=== PATIENT | female | born 1965 | race Caucasian/White ===

== ENCOUNTER 2017-03-18 17:38 | Emergency (ER) | payer MEDICAID ==
[~2017-03-18] VITALS: Ht 162.6 cm; Wt 46.6 kg
[~2017-03-18 17:38] MED LIST: HYDR-3533 PO; ZOFR4TAB3 SL
[2017-03-18 17:42] VITALS: BP 108/71; PULSE 69; RESP 16; TEMP 98.2; O2SAT 98
--- NOTE | 2017-03-18 18:13 | PD ---
HPI Chief Complaint: ENT Complaint Time Seen by Provider: 18:08 Travel History International Travel<30 days: No Contact w/Intl Traveler<30days: No Traveled to known affect area: No History of Present Illness HPI 51-year-old female presents to the emergency room for evaluation of sore throat for the past 3 weeks. At onset of symptoms, she went to an urgent care and was prescribed azithromycin despite testing negative for strep. She finished her prescription and states her symptoms seem to be improving slightly. Symptoms worsened again yesterday. She describes it as sharp, stabbing pain on the right throat with radiation into lower jaw. Pain is worsened with speaking and singing. States she feels like she is losing her voice. She denies fever, chills, nausea, vomiting, cough, and congestion. Denies smoking. Denies difficulty eating, drinking, or swallowing. PFSH Past Medical History Diminished Hearing: No Gastrointestinal Disorders: Yes (crohns disease) Medical other: Yes (ULCAERATIVE COLITIS) Immunizations Current: Yes ?: Not Menopausal: Yes Past Surgical History Tonsillectomy: Yes Social History Alcohol Use: No Tobacco Use: No Substance Use: No Allergies-Medications (Allergen,Severity, Reaction): Coded Allergies: Penicillin (Verified Allergy, Severe, 03/18/17) Reported Meds & Prescriptions Reported Meds & Active Scripts Active Magic Mouthwash Pediatric/Adult Liq (Lidocaine/Diphenhydr/Alum/Mg/Simeth) 60 Ml Susp 5 Ml SWISH-SWAL ACHS Each 5mL contains: Diphenydramine 4.5mg, Viscous Lidocaine 2% 10mg, Maalox Advanced Regular Strength 2.7ml Review of Systems Except as stated in HPI: all other systems reviewed are Neg Physical Exam Narrative GENERAL: Well-nourished, well-developed female in no acute distress. Afebrile. Ambulatory. SKIN: Focused skin assessment warm/dry. HEAD: Normocephalic. EYES: No scleral icterus. No injection or drainage. NECK: Supple, trachea midline. No JVD or lymphadenopathy. ENT: Mucosa pink and moist. Mild erythema without exudates. No uvular edema. No uvular, palatal, or tonsillar deviation. Airway patent. Tonsils 1+ and equal bilaterally. Nasal turbinates appear normal without nasal blood, purulent drainage or septal hematoma. EARS: Bilateral pinnae and external canals appear within normal limits. Bilateral tympanic membranes without erythema, dullness or perforation. CARDIOVASCULAR: Regular rate and rhythm without murmurs, gallops, or rubs. RESPIRATORY: Breath sounds equal bilaterally. No accessory muscle use. Data Data Last Documented VS Vital Signs Date Time Temp Pulse Resp B/P Pulse Ox O2 Delivery O2 Flow Rate FiO2 03/18/17 17:42 98.2 69 16 108/71 98 MDM Medical Decision Making Medical Screen Exam Complete: Yes Emergency Medical Condition: Yes Medical Record Reviewed: Yes Differential Diagnosis Streptococcal pharyngitis versus laryngitis versus viral pharyngitis Narrative Course 51-year-old female presents to the emergency room for evaluation of right-sided sore throat for the past 3 weeks worse with speaking. Patient has already been on a Z-Gio which seemed to temporarily improve her symptoms but they worsened last night. Physical exam is reassuring. Vital signs stable. Throat is very mildly erythematous without edema or exudates. Airway patent. Tonsils 1+ and equal. She has tender right sided submandibular lymphadenopathy. Patient is highly anxious and asks multiple questions about the severity of her illness. She was reassured that it is likely viral pharyngitis but referred to an ear, nose, throat physician given the duration of symptoms. Patient was told to follow up with a primary return for worsening symptoms. She understands and agrees to plan. Diagnosis Primary Impression: Pharyngitis Qualified Code: J02.9 - Pharyngitis, unspecified etiology Referrals: Ear / Nose / Throat Specialist Primary Care Physician Patient Instructions: General Instructions, Pharyngitis (ED) Additional Instructions: Rest and drink plenty of fluids. Take Tylenol as directed, as needed for pain. Use Magic mouthwash as directed, as needed for pain. Apply ice to the affected area for 20 minutes at a time, as needed for pain and swelling. Follow-up with a primary care physician. Return to the emergency room for worsening symptoms. Med/Other Pt SpecificInfo: Prescription(s) given Scripts Kwkpamhrdemsxxi-Jrcttahbk-Bzn-Alum-Simeth Liq (Magic Mouthwash Pediatric/Adult Liq)60 Ml Susp5 Ml SWISH-SWAL ACHS #60 ML Ref 0 Each 5mL contains: Diphenydramine 4.5mg, Viscous Lidocaine 2% 10mg, Maalox Advanced Regular Strength 2.7ml Prov:Christiano Nieto MD 03/18/17 Disposition: 01 DISCHARGE HOME Condition: Stable [place] March 18, 2017 18:13
[2017-03-18] MEDS ORDERED: MAGICPED SWISH-SWAL (18:38)
== END 2017-03-18 18:52 | disposition home or self-care (01) ==
LOC: PHEFT 17:38
DX: J02.9 Acute pharyngitis, unspecified (principal); R59.1 Generalized enlarged lymph nodes; K50.90 Crohn's disease, unspecified, without complications
CPT/HCPCS: 99282

== ENCOUNTER 2017-08-02 18:27 | Emergency (ER) | payer SELFPAY ==
[~2017-08-02] VITALS: Ht 160 cm; Wt 45.0 kg
[~2017-08-02 18:27] MED LIST changes: -HYDR-3533 PO; +MAGICPED SWISH-SWAL; -ZOFR4TAB3 SL
[2017-08-02 19:38] VITALS: BP 97/54; PULSE 69; RESP 16; TEMP 98.6; O2SAT 98
--- NOTE | 2017-08-02 20:03 | PD ---
HPI . Cough Chief Complaint: Cold / Flu Symptoms Time Seen by Provider: 19:55 Travel History International Travel<30 days: No Contact w/Intl Traveler<30days: No History of Present Illness HPI Patient states that she use felt ill for the last several days with body aches, subjective fever, coughing. She states that she now has paroxysmal coughing and she takes a deep breath. She states that this will make her chest hurt. The cough is nonproductive. Symptoms are exacerbated by deep breathing. Symptoms are mild. She has not taken anything for her symptoms prior to presentation. [facility] Past Medical History Diminished Hearing: No Gastrointestinal Disorders: Yes (crohns disease) Immunizations Current: Yes Menopausal: Yes Past Surgical History Tonsillectomy: Yes Social History Alcohol Use: No Tobacco Use: No Substance Use: No Allergies-Medications (Allergen,Severity, Reaction): Coded Allergies: penicillin G (Unverified Allergy, Severe, 06/07/17) Reported Meds & Prescriptions Reported Meds & Active Scripts Active Magic Mouthwash Pediatric/Adult Liq (Lidocaine/Diphenhydr/Alum/Mg/Simeth) 60 Ml Susp 5 Ml SWISH-SWAL ACHS Each 5mL contains: Diphenydramine 4.5mg, Viscous Lidocaine 2% 10mg, Maalox Advanced Regular Strength 2.7ml Review of Systems Except as stated in HPI: all other systems reviewed are Neg General / Constitutional: Positive: Fever, Chills Cardiovascular: Positive: Chest Pain or Discomfort Respiratory: Positive: Cough Physical Exam Narrative GENERAL: Awake and alert and in no distress. SKIN: warm/dry. HEAD: Normocephalic. Atraumatic. EYES: Pupils equal and round. No scleral icterus. No injection or drainage. ENT: No nasal bleeding or discharge. Mucous membranes pink and moist. NECK: Trachea midline. Full range of motion without pain.. CARDIOVASCULAR: Regular rate and rhythm. Heart sounds are normal. RESPIRATORY: No accessory muscle use. Clear to auscultation. Breath sounds equal bilaterally. Chest wall is nontender. She had no paroxysmal of coughing while I was examining her. GASTROINTESTINAL: Abdomen soft. Nontender. Bowel sounds present. Nondistended. MUSCULOSKELETAL: No obvious deformities. NEUROLOGICAL: Awake and alert. No obvious cranial nerve deficits. Motor grossly within normal limits. Normal speech. PSYCHIATRIC: Anxious appearing. Appropriate mood. Insight and judgment normal. Data Data Last Documented VS Vital Signs Date Time Temp Pulse Resp B/P (MAP) Pulse Ox O2 Delivery O2 Flow Rate FiO2 08/02/17 19:38 98.6 69 16 97/54 (68) 98 Orders Orders Electrocardiogram (08/02/17 18:37) MDM Medical Decision Making Medical Screen Exam Complete: Yes Emergency Medical Condition: Yes Differential Diagnosis Differential diagnosis includes but is not limited to viral respiratory illness , bronchitis, pneumonia, allergies, CHF, asthma/COPD. Narrative Course This patient presents with a chief complaint of cough. She is complaining with paroxysmal coughing associated with chest discomfort. She has no chest discomfort unless she is having the paroxysmal coughing. I will discharge her with instructions to take Robitussin-DM Diagnosis Primary Impression: Cough Patient Instructions: Acute Cough (ED), General Instructions Additional Instructions: Take [id number] Robitussin-DM or Delsym. Disposition: 01 DISCHARGE HOME Condition: Stable Sarah Cerna MD Aug 02, 2017 20:03
--- NOTE | 2017-08-03 23:48 | EKG ---
Date Performed: 08/02/2017 Time Performed: 18:37:36 PTAGE: 52 years EKG: Sinus rhythm WITH SHORT SC INTERVAL BORDERLINE ECG INTERPRETATION BASED ON A DEFAULT AGE OF 39 YEARS NO PREVIOUS TRACING DOCTOR: Marlon Reyna Interpretating Date/Time 08/03/2017 23:46:21
== END 2017-08-02 20:21 | disposition home or self-care (01) ==
LOC: PHED 18:27 → PHEFT 20:21
DX: R05 Cough (principal); R07.89 Other chest pain; K50.90 Crohn's disease, unspecified, without complications
CPT/HCPCS: 93005

== ENCOUNTER 2017-10-07 17:17 | Emergency (ER) | payer MEDICAID ==
[~2017-10-07] VITALS: Ht 162.6 cm; Wt 44.0 kg
[2017-10-07 17:26] VITALS: BP 109/60; PULSE 78; RESP 18; TEMP 98; O2SAT 98
[2017-10-07] MEDS ORDERED: APRI0.372 PO (17:47)
[2017-10-07 18:06] VITALS: BP 187/83; PULSE 73; RESP 17; O2SAT 94
[2017-10-07] MEDS ORDERED: SODIUM CHLOR 0.9% 1000 ML INJ 1,000 ML IV SCH (18:10)
[2017-10-07] MEDS ORDERED: SODIUM CHLORIDE 0.9% FLUSH 10 ML FLUSH IV FLUSH PRN (18:15)
--- NOTE | 2017-10-07 18:24 | PD ---
HPI Chief Complaint: Abdominal Pain Time Seen by Provider: 18:01 Travel History International Travel<30 days: No Contact w/Intl Traveler<30days: No Traveled to known affect area: No History of Present Illness HPI 52-year-old female complains of back pain, abdominal cramping, diarrhea, sore throat, dizziness, fever and chills. Patient states that the symptoms started about a week ago. Patient started with the back pain aching pain of the back. Patient started having diarrhea and low-grade fever and chills subsequently. Patient started having sore throat subsequently and feeling dizzy intermittently for the past few days. Patient denies any headache. Patient denies any neck pain. Patient denies any chest pain or shortness of breath. Patient denies any coughing congestion. Patient states that abdominal pain is mild intermittent cramping. Patient denies any pain radiation. Patient denies any dysuria or frequency. Patient denies any vaginal discharge or bleeding. Patient denies any blood or mucus per stool. Patient has history of ulcerative colitis. Patient has been taking mesalamine intermittent in the past however consistently for the past 2 weeks. PFSH Past Medical History Diminished Hearing: No Gastrointestinal Disorders: Yes (crohns disease) Immunizations Current: Yes Tetanus Vaccination: Unknown Influenza Vaccination: No ?: Not Menopausal: Yes Past Surgical History Tonsillectomy: Yes Social History Alcohol Use: No Tobacco Use: No Substance Use: No Allergies-Medications (Allergen,Severity, Reaction): Coded Allergies: penicillin G (Verified Allergy, Severe, 10/07/17) Reported Meds & Prescriptions Reported Meds & Active Scripts Active Reported Apriso (Mesalamine) 0.375 Gm Caper 1.5 Gm PO DAILY Review of Systems General / Constitutional: Positive: Fever, Chills Eyes: No: Visual changes HENT: Positive: Lightheadedness, No: Headaches Cardiovascular: No: Chest Pain or Discomfort Respiratory: No: Shortness of Breath Gastrointestinal: Positive: Diarrhea, Abdominal Pain Genitourinary: No: Dysuria Musculoskeletal: No: Pain Skin: No Rash Neurologic: No: Weakness Psychiatric: No: Depression Endocrine: No: Polydipsia Hematologic/Lymphatic: No: Easy Bruising Physical Exam Narrative GENERAL: Well-nourished, well-developed patient. SKIN: Focused skin assessment warm/dry. HEAD: Normocephalic. EYES: No scleral icterus. No injection or drainage. NECK: Supple, trachea midline. No JVD or lymphadenopathy. CARDIOVASCULAR: Regular rate and rhythm without murmurs, gallops, or rubs. RESPIRATORY: Breath sounds equal bilaterally. No accessory muscle use. GASTROINTESTINAL: Abdomen soft, nondistended. Patient has mild tenderness on palpation lower abdomen. No rebound tenderness. No mass. MUSCULOSKELETAL: No cyanosis, or edema. BACK: Nontender without obvious deformity. No CVA tenderness. Neurologic exam normal. Data Data Last Documented VS Vital Signs Date Time Temp Pulse Resp B/P (MAP) Pulse Ox O2 Delivery O2 Flow Rate FiO2 10/07/17 18:32 20 97 Room Air 10/07/17 17:26 98.0 78 109/60 (76) Orders Orders Complete Blood Count With Diff (10/07/17 18:10) Comprehensive Metabolic Panel (10/07/17 18:10) Iv Access Insert/Monitor (10/07/17 18:10) Ecg Monitoring (10/07/17 18:10) Oximetry (10/07/17 18:10) Sodium Chlor 0.9% 1000 Ml Inj (Ns 1000 M (10/07/17 18:10) Sodium Chloride 0.9% Flush (Ns Flush) (10/07/17 18:15) Labs Laboratory Tests Test 10/07/17 18:15 White Blood Count 13.1 TH/MM3 Red Blood Count 4.52 MIL/MM3 Hemoglobin 12.8 GM/DL Hematocrit 39.3 % Mean Corpuscular Volume 86.9 FL Mean Corpuscular Hemoglobin 28.4 PG Mean Corpuscular Hemoglobin Concent 32.6 % Red Cell Distribution Width 12.9 % Platelet Count 380 TH/MM3 Mean Platelet Volume 7.3 FL Neutrophils (%) (Auto) 64.1 % Lymphocytes (%) (Auto) 24.2 % Monocytes (%) (Auto) 4.6 % Eosinophils (%) (Auto) 6.4 % Basophils (%) (Auto) 0.7 % Neutrophils # (Auto) 8.4 TH/MM3 Lymphocytes # (Auto) 3.2 TH/MM3 Monocytes # (Auto) 0.6 TH/MM3 Eosinophils # (Auto) 0.8 TH/MM3 Basophils # (Auto) 0.1 TH/MM3 CBC Comment DIFF FINAL Differential Comment Blood Urea Nitrogen 12 MG/DL Creatinine 0.66 MG/DL Random Glucose 83 MG/DL Total Protein 7.7 GM/DL Albumin 3.5 GM/DL Calcium Level 8.8 MG/DL Alkaline Phosphatase 78 U/L Aspartate Amino Transf (AST/SGOT) 18 U/L Alanine Aminotransferase (ALT/SGPT) 25 U/L Total Bilirubin 0.4 MG/DL Sodium Level 136 MEQ/L Potassium Level 3.7 MEQ/L Chloride Level 102 MEQ/L Carbon Dioxide Level 27.0 MEQ/L Anion Gap 7 MEQ/L Estimat Glomerular Filtration Rate 94 ML/MIN MDM Medical Decision Making Medical Screen Exam Complete: Yes Emergency Medical Condition: Yes Interpretation(s) 1855 PM. CBC WBC 13.1. Normal differential. CMP within normal limit. Differential Diagnosis Differential diagnosis including viral syndrome, gastroenteritis, electrolyte imbalance, dehydration, acute exacerbation of ulcerative colitis. Narrative Course 52-year-old female with sore throat, diarrhea, body ache, dizziness. Patient has history of ulcerative colitis on mesalamine. Normal saline solution 1 25 cc an hour. Diagnosis Primary Impression: Viral syndrome Patient Instructions: General Instructions Additional Instructions: Continue with mesalamine. Tylenol for aching pain. Follow-up with personal physician. Return if worse. Med/Other Pt SpecificInfo: No Change to Meds George Spring MD Oct 07, 2017 18:24
[2017-10-07 18:32] VITALS: RESP 20; O2SAT 97
[2017-10-07 18:32] LABS: AUTOMATED NEUTROPHIL # 8.4 TH/MM3 (1.8-7.7); BASOPHIL # 0.1 TH/MM3 (0-0.2); BASOPHIL % 0.7 % (0.0-2.0); EOSINOPHIL # 0.8 TH/MM3 (0-0.4); EOSINOPHIL % 6.4 % (0.0-4.0); HEMATOCRIT 39.3 % (35.0-46.0); HEMOGLOBIN 12.8 GM/DL (11.6-15.3); LYMPH % 24.2 % (9.0-44.0); LYMPHOCYTE # 3.2 TH/MM3 (1.0-4.8); MEAN CELL VOLUME 86.9 FL (80.0-100.0); MEAN CORPUSCULAR HEMOGLOBIN 28.4 PG (27.0-34.0); MEAN CORPUSCULAR HGB CONC 32.6 % (32.0-36.0); MEAN PLATELET VOLUME 7.3 FL (7.0-11.0); MONO % 4.6 % (0.0-8.0); MONOCYTE # 0.6 TH/MM3 (0-0.9); NEUT % 64.1 % (16.0-70.0); PLATELET COUNT 380 TH/MM3 (150-450); RED BLOOD COUNT 4.52 MIL/MM3 (4.00-5.30); RED CELL DISTRIBUTION WIDTH 12.9 % (11.6-17.2); WHITE BLOOD COUNT 13.1 TH/MM3 (4.0-11.0)
[2017-10-07 18:41] LABS: CHLORIDE 102 MEQ/L (98-107); SODIUM (NA) 136 MEQ/L (136-145)
[2017-10-07 18:44] LABS: ALBUMIN 3.5 GM/DL (3.4-5.0); CALCIUM 8.8 MG/DL (8.5-10.1); GLUCOSE,RANDOM 83 MG/DL (74-106)
[2017-10-07 18:45] LABS: BLOOD UREA NITROGEN 12 MG/DL (7-18)
[2017-10-07 18:47] LABS: ALT (GPT) 25 U/L (10-53); AST (GOT) 18 U/L (15-37)
[2017-10-07 18:48] LABS: CREATININE 0.66 MG/DL (0.50-1.00); GLOMERULAR FILTRATION RATE 94 ML/MIN (>89)
[2017-10-07 18:49] LABS: TOTAL BILIRUBIN ADULT 0.4 MG/DL (0.2-1.0); TOTAL PROTEIN 7.7 GM/DL (6.4-8.2)
[2017-10-07 18:50] LABS: ALKALINE PHOSPHATASE 78 U/L (45-117)
[2017-10-07 19:00] VITALS: BP 93/63; PULSE 68; RESP 16; O2SAT 98
[2017-10-07 20:30] VITALS: BP 99/61
== END 2017-10-07 20:36 | disposition home or self-care (01) ==
LOC: PHED 17:17
DX: B34.9 Viral infection, unspecified (principal); K50.90 Crohn's disease, unspecified, without complications
CPT/HCPCS: 80053; 85025; 96360; 96361; 99284; J7030

== ENCOUNTER 2018-01-15 16:10 | Emergency (ER) | payer MEDICAID ==
[~2018-01-15] VITALS: Ht 162.6 cm; Wt 44.0 kg
[~2018-01-15 16:10] MED LIST changes: +APRI0.372 PO; -MAGICPED SWISH-SWAL
[2018-01-15 16:20] VITALS: BP 106/70; PULSE 92; RESP 16; TEMP 98.1; O2SAT 94
[2018-01-15] MEDS ORDERED: ALBUAER3 INH (17:22)
[2018-01-15] MEDS ORDERED: AZIT250T3 PO (17:22)
--- NOTE | 2018-01-15 17:23 | PD ---
HPI Chief Complaint: Cold / Flu Symptoms Time Seen by Provider: 17:08 Travel History International Travel<30 days: No Contact w/Intl Traveler<30days: No Traveled to known affect area: No History of Present Illness HPI The patient is 52 and arrives complaining of cough which tends to occur when she exhales. Sore throat is fairly mild at baseline and much worse with coughing approaching severe. She has had no fever. Similar episodes in the past have occurred and responded well to antibiotics. Patient reports most recent episode occurred after visiting [place] similar to today's event. She reports some chest pain with coughing starting if the sore throat. No shortness of breath. PFSH Past Medical History Diminished Hearing: No Gastrointestinal Disorders: Yes (crohns disease) Immunizations Current: Yes Menopausal: Yes Past Surgical History Tonsillectomy: Yes Social History Alcohol Use: No Tobacco Use: No Substance Use: No Allergies-Medications (Allergen,Severity, Reaction): Coded Allergies: penicillin G (Verified Allergy, Severe, 01/15/18) Reported Meds & Prescriptions Reported Meds & Active Scripts Active Proair Hfa 8.5 GM Inh (Albuterol Sulfate) 90 Mcg/Act Aer 2 Puff INH Q6H PRN 108 mcg/actuation Azithromycin 250 Mg Tab 250 Mg PO DIRECTED Take 2 tabs (500 mg) on day 1 then 1 tab daily x 4 days. Reported Apriso (Mesalamine) 0.375 Gm Caper 1.5 Gm PO DAILY Review of Systems General / Constitutional: No: Fever, Chills Respiratory: Positive: Cough, No: Shortness of Breath Physical Exam Narrative GENERAL: 52-year-old female well-nourished well-developed no acute distress sitting upright in bed speaking full sentences Vital Signs Date Time Temp Pulse Resp B/P (MAP) Pulse Ox O2 Delivery O2 Flow Rate FiO2 01/15/18 16:20 98.1 92 16 106/70 (82) 94 SKIN: Warm and dry. HEAD: Atraumatic. Normocephalic. EYES: Pupils equal and round. No scleral icterus. No injection or drainage. ENT: No nasal bleeding or discharge. Mucous membranes pink and moist. Trace erythema about the posterior oropharynx without tonsillar exudate or hypertrophy or asymmetry. NECK: Trachea midline. No JVD. CARDIOVASCULAR: Regular rate and rhythm. RESPIRATORY: Occasional wheezing. Speaking full sentences no significant dyspnea. GASTROINTESTINAL: Abdomen soft, non-tender, nondistended. Hepatic and splenic margins not palpable. MUSCULOSKELETAL: Extremities without clubbing, cyanosis, or edema. No obvious deformities. NEUROLOGICAL: Awake and alert. No obvious cranial nerve deficits. Motor grossly within normal limits. Five out of 5 muscle strength in the arms and legs. Normal speech. PSYCHIATRIC: Appropriate mood and affect; insight and judgment normal. Data Data Last Documented VS Vital Signs Date Time Temp Pulse Resp B/P (MAP) Pulse Ox O2 Delivery O2 Flow Rate FiO2 01/15/18 16:20 98.1 92 16 106/70 (82) 94 Orders Orders Ed Discharge Order (01/15/18 17:23) Al-Mag Hy-Si 40-40-4 Mg/Ml Liq (Mag-Al P (01/15/18 17:30) Lidocaine 2% Viscous (Xylocaine 2% Visco (01/15/18 17:30) MDM Medical Decision Making Medical Screen Exam Complete: Yes Emergency Medical Condition: Yes Medical Record Reviewed: Yes Differential Diagnosis Pharyngitis, laryngitis, pneumonia, bronchopneumonia, influenza Narrative Course There is minimal wheezing as well as fairly frequent coughing. Will treat with albuterol inhaler and azithromycin. The patient refused prednisone. GI cocktail for temporary relief here. Diagnosis Primary Impression: Bronchitis Additional Impression: Laryngitis Referrals: Primary Care Physician call for appointment Med/Other Pt SpecificInfo: Prescription(s) given Scripts Albuterol 8.5 GM Inh (Proair Hfa 8.5 GM Inh) 90 Mcg/Act Aer 2 PUFF INH Q6H Y for SHORTNESS OF BREATH, #1 INHALER 0 Refills 108 mcg/actuation Prov: Stu Reyna MD 01/15/18 Azithromycin (Azithromycin) 250 Mg Tab 250 MG PO DIRECTED for Infection, #6 TAB 0 Refills Take 2 tabs (500 mg) on day 1 then 1 tab daily x 4 days. Prov: Stu Reyna MD 01/15/18 Disposition: 01 DISCHARGE HOME Condition: Stable Stu Reyna MD Jan 15, 2018 17:23
[2018-01-15] MEDS ORDERED: LIDOCAINE VISCOUS 2% SOLN 15 ML UDC PO ONE (17:30)
[2018-01-15] MEDS ORDERED: ALUMINUM/MAGNESIUM/SIMETH 30 ML CUP PO ONE (17:30)
[2018-01-15 18:30] VITALS: BP 116/77
[2018-01-15] MEDS ORDERED: PRED10 PO (18:30)
== END 2018-01-15 18:40 | disposition home or self-care (01) ==
LOC: PHED 16:10
DX: J40 Bronchitis, not specified as acute or chronic (principal); J04.0 Acute laryngitis; K50.90 Crohn's disease, unspecified, without complications; Z79.899 Other long term (current) drug therapy; Z88.0 Allergy status to penicillin
CPT/HCPCS: 99283

== ENCOUNTER 2018-01-21 17:41 | Emergency (ER) | payer MEDICAID ==
[~2018-01-21] VITALS: Ht 162.6 cm; Wt 44.6 kg
[~2018-01-21 17:41] MED LIST changes: +ALBUAER3 INH; +AZIT250T3 PO; +PRED10 PO
[2018-01-21 17:58] VITALS: BP 117/64; PULSE 79; RESP 16; TEMP 97.8; O2SAT 100
[2018-01-21] MEDS ORDERED: AZIT250T3 PO (19:35)
[2018-01-21] MEDS ORDERED: PRED20 PO (19:35)
[2018-01-21] MEDS ORDERED: ALBUAER3 INH (19:35)
--- NOTE | 2018-01-21 19:35 | PD ---
HPI Chief Complaint: Cold / Flu Symptoms Time Seen by Provider: 19:00 Travel History International Travel<30 days: No Contact w/Intl Traveler<30days: No Traveled to known affect area: No History of Present Illness HPI This is a 52-year-old female here requesting replacement of her antibiotics, prednisone, albuterol inhaler she was prescribed several days ago for bronchitis. She reports she misplaced the medications. She reports she lost the medication after day 2. Symptom severity is moderate. No aggravating or alleviating factors PFSH Past Medical History Medical History: Denies Significant Hx Diminished Hearing: No Gastrointestinal Disorders: Yes (crohns disease, ULCERATIVE COLITIS) Immunizations Current: Yes Tetanus Vaccination: > 5 Years Influenza Vaccination: No ?: Not LMP: irregular states a few months ago Menopausal: Yes Past Surgical History Surgical History: No Previous Surgery Tonsillectomy: Yes Social History Alcohol Use: No Tobacco Use: No Substance Use: No Allergies-Medications (Allergen,Severity, Reaction): Coded Allergies: penicillin G (Verified Allergy, Severe, 01/21/18) Reported Meds & Prescriptions Reported Meds & Active Scripts Active Reported Apriso (Mesalamine) 0.375 Gm Caper 1.5 Gm PO DAILY Review of Systems Except as stated in HPI: all other systems reviewed are Neg General / Constitutional: No: Fever Eyes: No: Visual changes HENT: No: Headaches Cardiovascular: No: Chest Pain or Discomfort Respiratory: Positive: Cough Gastrointestinal: No: Abdominal Pain Genitourinary: No: Dysuria Physical Exam Narrative GENERAL: Alert and well-appearing 52-year-old female SKIN: Warm and dry. HEAD: Normocephalic. EYES: No injection or drainage. NECK: Supple CARDIOVASCULAR: Regular rate and rhythm without murmurs, gallops, or rubs. RESPIRATORY: Breath sounds equal bilaterally. No accessory muscle use. Frequent cough during exam GASTROINTESTINAL: Abdomen soft, non-tender, nondistended. MUSCULOSKELETAL: No cyanosis, or edema. BACK: Nontender without obvious deformity. No CVA tenderness. Data Data Last Documented VS Vital Signs Date Time Temp Pulse Resp B/P (MAP) Pulse Ox O2 Delivery O2 Flow Rate FiO2 01/21/18 17:58 97.8 79 16 117/64 (81) 100 MDM Medical Decision Making Medical Screen Exam Complete: Yes Emergency Medical Condition: Yes Differential Diagnosis Bronchitis, URI, pneumonia Narrative Course 52-year-old female here requesting replacement medication after she lost her antibiotics, steroids, inhaler. She is nontoxic appearing. Her medications will be refilled Diagnosis Primary Impression: Bronchitis Referrals: Primary Care Physician Scripts Prednisone (Prednisone) 20 Mg Tab 40 MG PO DAILY, #10 TAB 0 Refills Take 40 mg (2 tablets) daily for 5 days Prov: Gwendolyn Soni 01/21/18 Albuterol 8.5 GM Inh (Proair Hfa 8.5 GM Inh) 90 Mcg/Act Aer 2 PUFF INH Q4-6H Y for SHORTNESS OF BREATH, #1 INHALER 0 Refills 108 mcg/actuation Prov: Gwendolyn Soni 01/21/18 Azithromycin (Azithromycin) 250 Mg Tab 250 MG PO DIRECTED for Infection, #6 TAB 0 Refills Take 2 tabs (500 mg) on day 1 then 1 tab daily x 4 days. Prov: Gwendolyn Soni 01/21/18 Disposition: 01 DISCHARGE HOME Condition: Stable Gwendolyn Soni Jan 21, 2018 19:35
== END 2018-01-21 19:46 | disposition home or self-care (01) ==
LOC: PHED 17:41 → PHEFT 19:46
DX: J40 Bronchitis, not specified as acute or chronic (principal); Z79.899 Other long term (current) drug therapy; Z88.0 Allergy status to penicillin; Z87.19 Personal history of other diseases of the digestive system
CPT/HCPCS: 99283